=== PATIENT | male | born 2000 | race Caucasian/White ===

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

== ENCOUNTER 2020-05-07 15:40 | Emergency (ER) | payer OTHER ==
[~2020-05-07] VITALS: Ht 172.7 cm; Wt 107.9 kg
[~2020-05-07 15:40] MED LIST: VENL75CA2 PO
[2020-05-07] MEDS ORDERED: MORPHINE 4 MG/ML 1ML VIAL/SYRINGE (J2270) IV ONE (16:30)
[2020-05-07 16:56] LABS: BASO % 0.5 % (0.0-1.0); EOS # 0.1 10^3/uL (0.0-0.5); EOS % 1.5 % (0.0-3.0); HEMATOCRIT 45.5 % (42.0-52.0); LYMPH # 1.6 10^3/uL (1.5-5.0); LYMPH % 26.3 % (24.0-44.0); MEAN CORPUSCULAR HEMOGLOBIN 27.7 pg (27.0-33.0); MEAN CORPUSCULAR VOLUME 84.1 fl (80.0-96.0); MONO # 0.6 10^3/uL (0.0-0.8); MONO % 10.6 % (0.0-5.0); NEUTROPHILS # 3.6 10^3/uL (1.5-8.5); NEUTROPHILS % 60.8 % (36.0-66.0); PLATELET COUNT, AUTOMATED 198 10^3/uL (150-450); RED BLOOD COUNT 5.41 10^6/uL (4.30-6.10)
[2020-05-07 17:28] LABS: BILIRUBIN,DIRECT 0.2 MG/DL (0.0-0.2); BILIRUBIN,TOTAL 0.5 MG/DL (0.2-1.0); TOTAL PROTEIN 7.1 GM/DL (6.4-8.2)
[2020-05-07] MEDS ORDERED: ISOVUE-370 76% 100ML VIAL As Ordered ONE (17:30)
[2020-05-07] MEDS ORDERED: NAPR-837 PO (20:03)
[2020-05-07 20:11] VITALS: BP 135/72
[2020-05-07] MEDS ORDERED: NAPROXEN 250 MG TAB PO ONE (20:15)
--- NOTE | 2020-05-08 09:57 | REP ---
REPEAT DICTATION CT ABDOMEN AND PELVIS WITH IV BUT WITHOUT ORAL CONTRAST: HISTORY: Umbilical hernia, cannot reduce. Preliminary report is provided at the time of the exam by MERI. CT CONTRAST DOSE: 100 mL of intravenous Isovue [address] FINDINGS: Preliminary digital casting agent radiograph is noncontributory. The lung bases are clear on axial CT images. There is marked diffuse fatty infiltration of the liver with some areas of fat sparing near the gallbladder. No hepatic mass lesion is visible. The spleen is unremarkable. Normal adrenal glands are present. No abnormalities noted in the pancreas. The gallbladder is unremarkable. The kidneys enhance symmetrically. The right kidney is malrotated. No hydronephrosis or intrarenal calculus is observed. No retroperitoneal mass or adenopathy is seen. Normal appearing small bowel mesenteric lymph nodes are seen. Small and large bowel loops are unremarkable. There is a very small amount of fat in the umbilicus with a subcentimeter anterior abdominal wall defect. Skin thickening is seen in the umbilicus. No other abdominal wall defect is seen. Seminal vesicles, prostate, and urinary bladder are unremarkable. Small and large bowel loops appear intact. A normal appendix is visible in the right lower quadrant. No bony destructive lesion is seen. IMPRESSION: Marked diffuse fatty infiltration the liver. A tiny abdominal wall defect at the umbilicus containing fat. No acute intra-abdominal abnormality. Unreviewed
== END 2020-05-07 20:20 | disposition home or self-care (01) ==
LOC: M ED 15:40
DX: K42.9 Umbilical hernia without obstruction or gangrene (principal)
CPT/HCPCS: 74177; 80047; 80076; 83690; 85025; 96374; 99284; J2270; Q9967

== ENCOUNTER 2020-07-08 08:48 | Emergency (ER) | payer OTHER ==
[~2020-07-08] VITALS: Ht 170.2 cm; Wt 107.8 kg
[~2020-07-08 08:48] MED LIST changes: +NAPR-837 PO
[2020-07-08 08:49] VITALS: BP 133/77
[2020-07-08] MEDS ORDERED: NAPR-837 PO (09:26)
== END 2020-07-08 09:50 | disposition home or self-care (01) ==
LOC: M ED 08:48
DX: K42.9 Umbilical hernia without obstruction or gangrene (principal)

== ENCOUNTER → 2020-10-28 | Outpatient (CLI) | payer OTHER | LOC: M LABSMTC 09:19 | PROVIDERS: ATTEND Anesthesiology | DX: Z01.812 Encounter for preprocedural laboratory examination (principal); Z20.822 Contact with and (suspected) exposure to COVID-19 ==

== ENCOUNTER 2020-11-02 06:10 | Day surgery (SDC) | payer OTHER ==
[~2020-11-02] VITALS: Ht 175.3 cm; Wt 106.1 kg
[~2020-11-02 06:10] MED LIST changes: +CelecoXIB (CeleBREX) 100 MG CAP PO ONE; +LIDOCAINE 1% MDV 20ML VIAL SQ PRN; +LR 1,000 ML IV ONE; +ceFAZolin SOD 2 GM in IV 1 EA IV ONE
--- OUTSIDE RECORDS SUMMARY | 2020-11-02 06:31 | CCD ---
Author Author [facility] Organization [facility] Address Unknown Phone Unavailable Support Name Relationship Address Phone JOY VANN Next Of Kin [address] [place] [address] KIMBERLY Next Of Kin [id number] [place] [address] UE Next Of Kin Unknown Unavailable ST Next Of Kin Unknown Unavailable JOHN VANN Next Of Kin [address] [place] [address] Re-disclosure Warning The records that you are about to access may contain information from federally-assisted alcohol or drug abuse programs. If such information is present, then the following federally mandated warning applies: This information has been disclosed to you from records protected by federal confidentiality rules (42 CFR part 2). The federal rules prohibit you from making any further disclosure of this information unless further disclosure is expressly permitted by the written consent of the person to whom it pertains or as otherwise permitted by 42 CFR part 2. A general authorization for the release of medical or other information is NOT sufficient for this purpose. The Federal rules restrict any use of the information to criminally investigate or prosecute any alcohol or drug abuse patient.The records that you are about to access may contain highly sensitive health information, the redisclosure of which is protected by Article 27-F of the [facility] Public Health law. If you continue you may have access to information: Regarding HIV / AIDS; Provided by facilities licensed or operated by the [facility] Office of Mental Health; or Provided by the [facility] Office for People With Developmental Disabilities. If such information is present, then the following [facility] mandated warning applies: This information has been disclosed to you from confidential records which are protected by state law. State law prohibits you from making any further disclosure of this information without the specific written consent of the person to whom it pertains, or as otherwise permitted by law. Any unauthorized further disclosure in violation of state law may result in a fine or detention sentence or both. A general authorization for the release of medical or other information is NOT sufficient authorization for further disc losure. Insurance Providers Payer name Policy type / Coverage type Policy ID Covered green party ID Covered green party's relationship to buchanan Policy [place] Plan Information [facility] [id number] SP [id number] [facility] [id number] SP [id number] [place] [employer] O [id number] S [id number] [facility]) O [id number] S [id number] [facility] O [id number] S [id number] [facility] SP [facility] [place] [facility] [id number] FA2 [id number] [facility] [id number] SP [id number] [place] [id number] SP [id number] [facility] [id number] SP [id number] [facility] COMM[facility] [id number] SP [id number] Results ID Date Data Source [id number] 10/28/2020 08:30:00 AM EST [facility] Name Value Range Interpretation Code Description Data Madeleine rce(s) Supporting Document(s) SARS coronavirus 2 RNA Not Detected [facility] [place] This lab was ordered by [facility] and reported by [facility]. Procedure
[2020-11-02] MEDS ORDERED: BUPIVACAINE HCL 0.25% 10ML VIAL As Ordered ONE (07:11)
[2020-11-02] MEDS ORDERED: LIDOCAINE 1% SDV 30ML VIAL As Ordered ONE (07:11)
[2020-11-02] MEDS ORDERED: BUPIVACAINE HCL 0.25% 30ML VIAL As Ordered ONE (07:12)
[2020-11-02] MEDS ORDERED: BUPIVACAINE LIPOSOME/PF 1.3% 20ML VIAL (13.3MG/ML)(EXPAREL)(C9290 PER1MG) As Ordered ONE (07:12)
[2020-11-02] MEDS ORDERED: METOCLOPRAMIDE INJ 10MG/2ML VIAL (J2765 PER 1) As Ordered ONE (07:55)
[2020-11-02] MEDS ORDERED: LIDOCAINE 2% 100MG/5ML SDV (FOR ANES.) As Ordered ONE (07:55)
[2020-11-02] MEDS ORDERED: dexameTHASONE 4 MG/ML 1ML VIAL (J1100 PER 1MG) As Ordered ONE (07:55)
[2020-11-02] MEDS ORDERED: ROCURONIUM BROMIDE 50 MG/5 ML VIAL As Ordered ONE ×2 (07:55→08:11)
[2020-11-02] MEDS ORDERED: SUGAMMADEX SODIUM 500 MG/5 ML VIAL (BRIDION) As Ordered ONE (07:55)
[2020-11-02] MEDS ORDERED: ONDANSETRON 4MG/2ML VIAL As Ordered ONE (07:55)
[2020-11-02] MEDS ORDERED: MIDAZOLAM INJ 2MG/2ML VIAL (J2250 PER 1MG) As Ordered ONE (07:55)
[2020-11-02] MEDS ORDERED: fentaNYL 250 MCG/5 ML INJECTION (J3010) As Ordered ONE (07:55)
[2020-11-02] MEDS ORDERED: propofoL 200 MG/20 ML VIAL As Ordered ONE ×2 (07:55→08:11)
[2020-11-02] MEDS ORDERED: HYDROmorphone HCL 2 MG/ML 1ML VIAL (J1170) As Ordered ONE (08:04)
[2020-11-02] MEDS ORDERED: DESFLURANE 240 ML INHALANT As Ordered ONE (08:07)
[2020-11-02] MEDS ORDERED: HYDROMORPHONE HCL 0.5 MG/ 0.5 ML SYRINGE (J1170 PER 1) IV PRN (10:45)
[2020-11-02] MEDS ORDERED: NORCO, ANEXSIA 5/325MG TABLET (HYDROcodone/ACETAMINOPHEN) PO PRN (10:45)
[2020-11-02] MEDS ORDERED: fentaNYL 100 MCG/2 ML INJECTION (J3010) IV PRN (10:45)
[2020-11-02] MEDS ORDERED: oxyCODONE 5MG TAB PO PRN (10:45)
[2020-11-02] MEDS ORDERED: KETOROLAC 30 MG/ML 1ML VIAL IV PRN (10:45)
[2020-11-02] MEDS ORDERED: ONDANSETRON 4MG/2ML VIAL IV PRN ×2 (10:45)
[2020-11-02] MEDS ORDERED: METOCLOPRAMIDE INJ 10MG/2ML VIAL (J2765 PER 1) IV PRN (10:45)
[2020-11-02] MEDS ORDERED: LR 1,000 ML IV SCH (10:45)
--- NOTE | 2020-11-02 15:06 | ROOPDOC ---
[facility] Report Of Operation Report of Operation DATE OF PROCEDURE: 11/02/20 PREPROCEDURE DIAGNOSES: umbilical hernia, moderate obesity. POSTPROCEDURE DIAGNOSES: umbilical hernia, moderate obesity. PROCEDURE: Robotic assisted laparoscopic umbilical hernia repair (rTAPP 10x10 midweight PP mesh). Transversus abdominis plane block with Exparel/Marcaine under laparoscopic guidance. SURGEON: Duncan Laughlin MD FRUIT ROOM HAND: SIMONE Rivas Ms. assisted me with placement of ports, management/exchange of the instruments, sutures, mesh, adjustment of the robotic arms and closure of ports ANESTHESIA: General Anesthesia. ESTIMATED BLOOD LOSS: Approximately 10 mL. COMPLICATIONS: none. REMARKS 20 M who had an episode of transient incarceratiion of his umbilical hernia (preperitoneal fat) while at work last year. PROCEDURE NOTE: incarcerated preperitoneal fat tissue, fascial defect 1.5 cms, mild diastases, 10x10 cm midweight PP mesh (Bardsoft) placed in preperitoneal space. DESCRIPTION OF PROCEDURE: Patient received 2 g of Ancef IV preoperatively for wound prophylaxis. Patient was brought to the operating room, placed supine on the operating table. Compression boots placed in both lower extremities for DVT prophylaxis. General anesthesia started. His abdomen then prepped and draped in the usual sterile fashion. We paused for a surgical timeout using both pre-incision safety checklist to verify correct patient, procedure site and additional clinical information prior to beginning the procedure Patient is a very rounded protuberant abdomen. He has a narrow deep cleft with a palpable lump at the bottom of the cleft that is nonreducible. We started with the left upper quadrant approach. Small incision was created with a Veress needle was inserted. Proper placement confirmed with saline drop technique. CO2 insufflation started to pressure of 15 mmHg. Displaced lateral subcostally and a used this for my first port placement. An 8 mm robotic trocar was placed under direct vision laparoscope. Insertion site was inspected for injury found. Examination of the abdominal wall shows a piece of omentum going through a small umbilical defect. He was placed in the left side tilted displaced bowels when the left side of the abdominal wall. Under direct visualization to ports were placed along the left side of the abdomen about 12 cm apart. The lower port was a 8 mm long bariatric trocar was middle camera port was regular 8 mm port. I perform a bilateral transversus abdominis plane block with our mixture of Exparel and Marcaine. The dementia robot to send position in place and the trochars duct. Instruments were placed under direct vision. A used a robotic scissors connected to monopolar cautery and forceps bipolar forceps connected to a bipolar cord with a 30 robotic laparoscope pointed upwards. I then scrubbed and took control of the camera and instruments of cisterns console while my faculty i on call medical assistant remain on the field for management of the instruments in the robotic arms as well as of the mesh on my instructions. The omentum was reduced back into the abdomen. I measured a 5 cm margin circumferentially around the edges of the defect which is small. I created a preperitoneal pocket starting laterally going towards the umbilical defect. Once we are around the umbilicus the preperitoneal tissue that was incarcerated in the fascial defect was reduced together with the peritoneum and proceeded towards her right side to create an adequate sized pocket. Once this was done they examined my flap. There was a small hole laterally on the left upper portion of the flap which I would repair later on with a 3-0 Vicryl. The fascial defect together with part of the diastases a few centimeter spillage of bowel was closed with a 0 stratafix nonabsorbable suture. I had my faculty i on call medical assistant, a 15 x 15 cm midweight polypropylene bare mesh (Bard soft) to 10 x 10 cm and this was introduced into the abdomen. The mesh was laid flat onto the abdominal wall and secured with part of the Stratafix suture as I come back towards the center of the closure to hold the mesh in place. I then placed interruptedly 2-0 Vicryl sutures to secure and make sure that the mesh is flat on the abdominal wall about 3 each on both sides of the mesh. Once this was done, the flap was closed with a running suture of 30V LOC. The previously recognized whole in the flap at about the 11 o'clock position was closed with #3 Vicryl. Before, and I severed the abdomen for any injuries or signs of bleeding. The sutures and the ruler was recovered. The abdomen was then deflated. Ports were removed. The 8 mm port sites were closed at the skin with 4-0 Monocryl in subcuticular fashion. Dermabond was then used to cover the incisions. Patient tolerated procedure well. He was subsequently awakened, extubated and brought to recovery room in stable condition. DUNCAN LAUGHLIN MD Nov 02, 2020 15:06
[2020-11-02 15:20] VITALS: BP 143/76
== END 2020-11-02 15:20 | disposition home or self-care (01) ==
LOC: M SDC 06:10
PROVIDERS: ATTEND Surgery
DX: K42.9 Umbilical hernia without obstruction or gangrene (principal); E66.9 Obesity, unspecified; K21.9 Gastro-esophageal reflux disease without esophagitis; F41.9 Anxiety disorder, unspecified; F32.9 Major depressive disorder, single episode, unspecified
CPT/HCPCS: 49652; C1781; C9290; J0690; J1100; J1170; J2250; J2405; J2765; J3010; S2900

== ENCOUNTER 2021-05-13 17:21 | Emergency (ER) | payer OTHER ==
[~2021-05-13] VITALS: Ht 170.2 cm; Wt 105.0 kg
[~2021-05-13 17:21] MED LIST changes: -CelecoXIB (CeleBREX) 100 MG CAP PO ONE; -LIDOCAINE 1% MDV 20ML VIAL SQ PRN; -LR 1,000 ML IV ONE; -ceFAZolin SOD 2 GM in IV 1 EA IV ONE
[2021-05-13 17:23] VITALS: BP 137/77
[2021-05-13 19:39] LABS: BASO % 0.6 % (0.0-1.0); EOS # 0.1 10^3/uL (0.0-0.5); EOS % 1.7 % (0.0-3.0); HEMATOCRIT 44.8 % (42.0-52.0); HEMOGLOBIN 14.8 g/dl (13.5-17.5); LYMPH # 1.9 10^3/uL (1.5-5.0); LYMPH % 27.1 % (24.0-44.0); MEAN CORPUSCULAR HEMOGLOBIN 27.8 pg (27.0-33.0); MEAN CORPUSCULAR VOLUME 84.2 fl (80.0-96.0); MONO # 0.5 10^3/uL (0.0-0.8); MONO % 7.3 % (2.0-8.0); NEUTROPHILS # 4.3 10^3/uL (1.5-8.5); PLATELET COUNT, AUTOMATED 215 10^3/uL (150-450); RED BLOOD COUNT 5.32 10^6/uL (4.30-6.10); WHITE BLOOD COUNT 6.9 10^3/uL (4.0-10.0)
[2021-05-13] MEDS ORDERED: ISOVUE-370 76% 100ML VIAL As Ordered ONE (20:02)
[2021-05-13 20:08] LABS: ALBUMIN 4.4 GM/DL (3.2-5.2); BILIRUBIN,DIRECT 0.1 MG/DL (0.0-0.2); BILIRUBIN,TOTAL 0.4 MG/DL (0.2-1.0); TOTAL PROTEIN 7.4 GM/DL (6.4-8.2)
--- NOTE | 2021-05-14 08:10 | REP ---
INDICATION: periumbilic pain. Repeat dictation. Preliminary report is provided at the time of the exam by maritza ALVAREZ. COMPARISON: Comparison CT study May 07, 2020.. TECHNIQUE: Helical scanning was acquired and 4 mm axial images are re-formatted. Coronal and sagittal MPR images were generated and reviewed. The contrast enhancement dose is 100 mL of intravenous Isovue 370. 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 The lung bases are clear on axial CT images. The liver shows diffuse decreased density consistent with moderate degree of fatty infiltration. This is unchanged from the 2019 prior study. The liver is not felt to be enlarged. The spleen is normal in size homogeneous in texture. No abnormality is noted in the pancreas or the gallbladder. Normal adrenal glands are seen. Kidneys are is slightly malrotated at as previously noted. There are multiple renal arteries bilaterally. No hydronephrosis or mass is seen. Kidneys enhance symmetrically. No retroperitoneal mass or adenopathy is seen. A normal appendix is seen medial to the cecum in the right lower quadrant. Urinary bladder, prostate, and seminal vesicles are unremarkable. Small and large bowel loops show no evidence of obstruction or mass. No abdominal wall defect or bony destructive lesion. IMPRESSION: Moderate degree of diffuse fatty infiltration of the liver again noted. Somewhat malrotated kidneys. No acute abdominal or pelvic abnormality. Normal appendix. <Electronically signed by Aidan Kyle > 05/14/21 [id number]
== END 2021-05-13 22:59 | disposition home or self-care (01) ==
LOC: M ED 17:21
DX: S30.1XXA Contusion of abdominal wall, initial encounter (principal); X58.XXXA Exposure to other specified factors, initial encounter; Y92.9 Unspecified place or not applicable; Y93.9 Activity, unspecified; Y99.0 Civilian activity done for income or pay; R93.429 Abnormal radiologic findings on diagnostic imaging of unspecified kidney; F41.9 Anxiety disorder, unspecified; F32.9 Major depressive disorder, single episode, unspecified; E66.9 Obesity, unspecified; K76.0 Fatty (change of) liver, not elsewhere classified
CPT/HCPCS: 74177; 80047; 80076; 85025; 99283; Q9967